=== PATIENT | male | born 1980 | race Two or more races ===

== ENCOUNTER → 2020-06-05 | Emergency (ER) | payer OTHER ==
[~2020-06-05] VITALS: Ht 167.6 cm; Wt 120.2 kg
[~2020-06-05] MED LIST: methylPREDNISolone SOD SUCC 125 MG/2 ML VL IM ONE
[2020-06-05 01:52] VITALS: BP 120/77
== END | disposition home or self-care (01) ==
LOC: ER 01:43
DX: T78.40XA Allergy, unspecified, initial encounter (principal); L29.9 Pruritus, unspecified; L50.9 Urticaria, unspecified; E11.9 Type 2 diabetes mellitus without complications; Z88.8 Allergy status to other drugs, medicaments and biological substances; X58.XXXA Exposure to other specified factors, initial encounter
CPT/HCPCS: 82962; 96372; 99283; J2930

== ENCOUNTER 2020-10-03 16:18 | Emergency (ER) | payer OTHER ==
[~2020-10-03] VITALS: Ht 167.6 cm; Wt 117.9 kg
[2020-10-03 16:29] VITALS: BP 139/91
[2020-10-03] MEDS ORDERED: ACETAMINOPHEN 325 MG TAB PO ONE (16:45)
[2020-10-03 19:52] LABS: Calcium 8.7 mg/dL (8.5-10.1); Potassium 3.1 mmol/L (3.5-5.1)
[2020-10-03 19:54] LABS: Albumin 3.9 g/dL (3.4-5.0); BUN/Creatinine Ratio 10.1; Magnesium 2.3 mg/dL (1.6-2.6)
[2020-10-03 19:58] LABS: Bilirubin, Total 0.4 mg/dL (0.2-1.0); Total Protein 8.7 g/dL (6.4-8.2)
[2020-10-03 20:01] LABS: Basophils # (auto) 0 10 ^3/uL (0-0.2); Basophils % (auto) 0.2 % (0.0-2.0); Eosinophils # (auto) 0 10 ^3/uL (0-0.8); Hematocrit 48.5 % (41.0-53.0); Hemoglobin 16.5 g/dL (13.5-17.5); Lymphocytes # (auto) 1.4 10 ^3/uL (0.4-5.4); Lymphocytes % (auto) 13.9 % (10.0-50.0); Mean Corpuscular Volume 85.5 fL (80.0-100.0); Monocytes # (auto) 0.6 10 ^3/uL (0-1.3); Monocytes % (auto) 6.4 % (0.0-12.0); Neutrophils % (auto) 79.5 % (37.0-80.0); Nucleated Red Blood Cells % 0.1 %; Platelet Count (auto) 208 10^3/uL (140-450); Red Blood Cells 5.67 10^6/uL (4.5-5.90); Red Cell Distribution Width 14.4 % (11.8-14.3)
[2020-10-03] MEDS ORDERED: POTASSIUM EFFERVESENT TAB 25 MEQ GT ONE (20:30)
[2020-10-03] MEDS ORDERED: levoFLOXacin 250 MG TAB PO ONE (23:15)
== END 2020-10-04 01:16 | disposition home or self-care (01) ==
LOC: ER 16:18
DX: U07.1 COVID-19 (principal); R51.9 Headache, unspecified; R06.02 Shortness of breath
CPT/HCPCS: 36415; 71045; 80053; 83735; 85025; 87040; 87426

== ENCOUNTER 2024-04-06 16:17 | Emergency (ER) | payer OTHER ==
[~2024-04-06] VITALS: Ht 170.2 cm; Wt 122.7 kg
[2024-04-06 16:42] LABS: Basophils # (auto) 0.2 10 ^3/uL (0-0.2); Basophils % (auto) 1.2 % (0.0-2.0); Eosinophils # (auto) 0.3 10 ^3/uL (0-0.8); Hemoglobin 15.2 g/dL (13.5-17.5); Lymphocytes # (auto) 3.9 10 ^3/uL (0.4-5.4); Lymphocytes % (auto) 31.1 % (10.0-50.0); Mean Corpuscular Hemoglobin 29.9 pg (28.0-32.0); Mean Corpuscular Hgb Conc. 34.4 g/dL (32.0-36.0); Mean Corpuscular Volume 86.7 fL (80.0-100.0); Monocytes # (auto) 0.8 10 ^3/uL (0-1.3); Monocytes % (auto) 6.5 % (0.0-12.0); Neutrophils # (auto) 7.4 10 ^3/uL (1.6-8.6); Neutrophils % (auto) 59.2 % (37.0-80.0); Red Blood Cells 5.08 10^6/uL (4.5-5.90); Red Cell Distribution Width 14.5 % (11.8-14.3); White Blood Cell 12.5 10^3/uL (4.4-10.8)
[2024-04-06 16:56] LABS: Alanine Aminotransferase 25 U/L (7-40); Albumin 4.4 g/dL (3.2-4.8); Alkaline Phosphatase 81 U/L (46-116); Anion Gap 5 (5-15); Aspartate Aminotransferase 13 U/L (13-40); BUN/Creatinine Ratio 18.4 (10.0-20.0); Bilirubin, Total 0.4 mg/dL (0.2-1.0); Blood Urea Nitrogen 18 mg/dL (9-23); Calcium 9.8 mg/dL (8.5-10.1); Carbon Dioxide 30 mmol/L (20-30); Chloride 106 mmol/L (98-107); Glucose 155 mg/dL (74-106); Magnesium 1.8 mg/dL (1.6-2.6); Potassium 4.4 mmol/L (3.5-5.1); Sodium 141 mmol/L (136-145); Total Protein 6.6 g/dL (5.7-8.2)
[2024-04-06 17:07] LABS: INR 0.95 (0.9-1.15); Partial Thromboplastin Time 28.8 SEC (24.5-34.5); Prothrombin Time 10.1 sec (9.3-11.8)
[2024-04-06] MEDS ORDERED: ACET500T58 PO (21:04)
[2024-04-06] MEDS ORDERED: IBUP-1455 PO (21:04)
[2024-04-06] MEDS: KETOROLAC TROMETH 60MG/2ML VIAL IM ONE (21:18)
[2024-04-06 21:19] VITALS: BP 136/79; PULSE 95; RESP 19; TEMP 97.7; O2SAT 100
== END 2024-04-06 21:20 | disposition home or self-care (01) ==
LOC: ER 16:17
DX: R07.89 Other chest pain (principal); E11.8 Type 2 diabetes mellitus with unspecified complications; Z88.8 Allergy status to other drugs, medicaments and biological substances
CPT/HCPCS: 36415; 71045; 80053; 83735; 83880; 84484; 85025; 85610; 85730; 93005; J1885